=== PATIENT | female | born 1995 | race Caucasian/White ===

== ENCOUNTER → 2019-05-28 | Day surgery (SDC) | payer OTHER ==
[~2019-05-28] VITALS: Ht 165.1 cm; Wt 105.7 kg
[~2019-05-28] MED LIST: BUPIVACAINE /EPINEPHRINE/PF 0.25% 30 ML VIAL INJ ONE; CEFAZOLIN 1 GM IVPB PREMIX 50 ML IV ONE; HYDROcodone/ACETAMIN 5-325 MG TAB (NORCO/ VICODIN) PO ONE; HYDROcodone/ACETAMIN 5-325 MG TAB (NORCO/ VICODIN) PO PRN; KETOROLAC TROMETHAMINE 30 MG VIAL IM ONE; LR 1,000 ML IV SCH; LR 1,000 ML IV.SOLN IV ONE; METOCLOPRAMIDE HCL 10 MG/2 ML VIAL IVP PRN; METOCLOPRAMIDE HCL 10 MG/2 ML VIAL ONE; MIDAZOLAM HCL 5 MG/5 ML VIAL IVP ONE; MORPHINE 4 MG/ML INJ. SYRINGE IVP ONE; MORPHINE 4 MG/ML INJ. SYRINGE IVP PRN; MORPHINE 4 MG/ML INJ. SYRINGE ONE; NS 1000 ML IV.SOLN IV ONE; NS IRRIG SOLN 1000 ML IR ONE; ONDANSETRON HCL 4 MG/2 ML VIAL IVP ONE; ONDANSETRON HCL 4 MG/2 ML VIAL IVP PRN; PROPOFOL 200MG/ 20ML VIAL (DIPRIVAN) IV ONE; ROCURONIUM BROMIDE 10 MG/ML (ZEMURON) IV ONE; SEVOFLURANE 15 MIN GAS INH ONE; fentaNYL CITRATE 250 MCG/5 ML AMP IV ONE
[2019-05-28 08:13] VITALS: BP_SYST 144
--- NOTE | 2019-05-28 08:18 | NUR ---
Patient to ER bed 5 to gown for evaluation. Side rails up. Report given to JERI Salvador.
--- NOTE | 2019-05-28 08:30 | NUR ---
Patient came into ED due to right sided pain near her ovary. Pt stated she came into ED last week and was diagnosed with an ovarian cyst and was given a prescription for Sublette. Pt stated she woke up this morning around 0400 and was in extreme pain, She took a Sublette but it didn't help. Pt's current pain is 8/10. Pt stated she had some nausea, but no V/D. Pt is A&Ox4.
--- NOTE | 2019-05-28 08:45 | NUR ---
MELISSA matta at bedside examining patient.
[2019-05-28 09:01] LABS: BILIRUBIN,URINE NEGATIVE (NEGATIVE); BLOOD, URINE 1+ (NEGATIVE); CLARITY/URINE SL HAZY (CLEAR); COLOR,URINE YELLOW (YELLOW); GLUCOSE,URINE NEGATIVE (NEGATIVE); KETONES,URINE NEGATIVE (NEGATIVE); LEUKOCYTE ESTERASE ,URINE NEGATIVE (NEGATIVE); NITRITE, URINE NEGATIVE (NEGATIVE); PROTEIN URINE NEGATIVE (NEGATIVE); UROBILINOGEN,URINE 0.2 (0.2-1.0)
[2019-05-28 09:33] LABS: BACTERIA,URINE FEW /HPF (None Seen); WBC,URINE 0-3 /HPF (0-3)
[2019-05-28 09:34] LABS: MUCUS,URINE 1+ /LPF (None Seen); URINE AMORPHOUS URATE 2+ /HPF (None Seen)
--- NOTE | 2019-05-28 09:41 | NUR ---
PATIENT BACK FROM CT IN STABLE CONDITION. PATIENT CRYING IN BED OF PAIN. DR SANFORD AWARE.
--- NOTE | 2019-05-28 10:29 | NUR ---
Medication reconciliation completed with information provided by Patient. Any prior medication reconciliation on file was reviewed and corrected.
--- NOTE | 2019-05-28 10:50 | NUR ---
DISCUSSED END OF LIFE CARE WITH PATIENT. PATIENT STATES SHE IS FULL CODE.
[2019-05-28 11:09] LABS: BASOPHILS # (AUTO) 0.1 K/uL (0.0-0.2); BASOPHILS % (AUTO) 0.4 % (0.0-2.0); EOSINOPHILS % (AUTO) 0.2 % (0.0-4.0); HEMATOCRIT 42.8 % (36-48); HEMOGLOBIN 13.8 g/dL (12.0-16.0); LYMPHOCYTES # (AUTO) 1.1 K/uL (1.0-5.5); LYMPHOCYTES % (AUTO) 8.1 % (20.5-51.5); MEAN CORPUSCULAR HEMOGLOBIN 26 pg (27-31); MEAN CORPUSCULAR HGB CONC 32 % (32-36); MEAN CORPUSCULAR VOLUME 82 fL (79.0-98.0); MONOCYTES # (AUTO) 0.5 K/uL (0.0-1.0); NEUTROPHILS % (AUTO) 87.3 % (40.0-70.0); PLATELET COUNT (AUTO) 331 K/uL (130-430); RED BLOOD CELL COUNT(AUTO) 5.24 MIL/uL (4.2-6.2); WHITE BLOOD COUNT (AUTO) 13.7 K/uL (4.8-10.8)
[2019-05-28 11:26] LABS: CALCIUM 10.2 mg/dL (8.4-11.0); CREATININE 0.64 mg/dL (0.55-1.30); POTASSIUM 3.9 mmol/L (3.5-5.1)
[2019-05-28 11:31] LABS: ALBUMIN 4.3 g/dL (3.4-4.8); TOTAL BILIRUBIN 0.4 mg/dL (0.0-1.0)
--- NOTE | 2019-05-28 11:38 | NUR ---
SWABBED FOR MRSA. SENT TO LAB.
--- NOTE | 2019-05-28 12:57 | NUR ---
DR MCNEAL AT BEDSIDE TALKING TO PATIENT.
--- NOTE | 2019-05-28 13:38 | NUR ---
Patient Transfered to OR. IV present no signs or symptoms of infiltration.
--- NOTE | 2019-05-28 13:40 | NUR ---
Patient will be admitted to care of Dr Zheng. Admitted to OR unit. Belongings list completed. Summary report printed. Report given to Jerica.
--- NOTE | 2019-05-28 13:51 | NUR ---
Report given to Jerica in OR.
[2019-05-28 16:00] VITALS: BP_SYST 136
[2019-05-28] MEDS: MORPHINE 4 MG/ML INJ. SYRINGE IVP PRN ×2 (16:09→16:37)
== END | disposition still patient (30) ==
LOC: SED 08:08 → SDS 15:00 → SMU 15:15 → UNDOADMIN 15:15
PROVIDERS: ATTEND Specialist
DX: D27.0 Benign neoplasm of right ovary (principal); N83.511 Torsion of right ovary and ovarian pedicle; E66.01 Morbid (severe) obesity due to excess calories; Z79.899 Other long term (current) drug therapy; Z79.01 Long term (current) use of anticoagulants
CPT/HCPCS: 36415; 58662; 76830; 76857; 80053; 81000; 85025; 85610; 85730; 86886; 86900; 86901; 87081; 88307; 96372; 96374; 96375; 99285; C1727; J0690; J1885; J2250; J2270; J2405; J2704; J2765; J3010; J3490; J7030; J7120